=== PATIENT | female | born 1970 | race Native Hawaiian/Other Pacific Islander ===

== ENCOUNTER → 2016-04-04 | Outpatient (CLI) | payer OTHER ==
--- NOTE | 2016-04-04 13:10 | Diagnostic Imaging Report ---
Transabdominal and transvaginal pelvic ultrasound. INDICATION: Adnexal fullness. Pelvic pain. FINDINGS: The uterus is 9.4 x 4.8 x 4.6 cm. The endometrial stripe is 0.9 cm in thickness. The myometrium is heterogeneous with no discrete mass seen however. The ovaries are obscured by bowel gas. IMPRESSION: The ovaries are obscured. Heterogeneous myometrium with no discrete mass. Dictated by: Dictated on workstation # [id number]
--- NOTE | 2016-04-05 16:00 | Diagnostic Imaging Report ---
EXAMINATION: Bilateral digital screening mammogram with CAD. The current study was also evaluated with a Computer Aided Detection (CAD) system. INDICATION: Screening. No current complaints stated on the questionnaire. COMPARISON: 08/12/12. FINDINGS: The breasts are composed of heterogeneously dense parenchyma which may decrease mammographic sensitivity. There is an asymmetry along the upper aspect of the right MLO view, measuring 1 cm in size. The left breast demonstrates no significant change. IMPRESSION: Focal compression view and ultrasound evaluation for asymmetry in the upper aspect of the right breast is recommended. ACR BI-RADS Category 0: Incomplete. (Needs additional imaging evaluation). Result letter will be mailed to the patient. Note: At least 10% of breast cancer is not imaged by mammography. Dictated by: Dictated on workstation # [id number]
== END ==
LOC: RAD 09:59
PROVIDERS: ATTEND Nurse Practitioner Family
DX: R10.2 Pelvic and perineal pain (principal); N94.9 Unspecified condition associated with female genital organs and menstrual cycle; Z12.31 Encounter for screening mammogram for malignant neoplasm of breast
CPT/HCPCS: 76830; 76856

== ENCOUNTER 2020-03-26 04:21 | Inpatient (IN) | payer BC ==
[2020-03-26] VITALS (11 sets, daily range): BP systolic 132–156; BP diastolic 69–92
[~2020-03-26] VITALS: Ht 167.7 cm; Wt 93.1 kg
[2020-03-26] MEDS ORDERED: ASPIRIN 81 MG CHEW (CHILDREN'S ASA) PO ONE (04:45)
[2020-03-26 04:50] LABS: BASOPHILS # (AUTO) 0.1 10^3/uL (0.0-0.1); BASOPHILS % (AUTO) 1 % (0-10); EOSINOPHILS # (AUTO) 0.1 10^3/uL (0.0-0.3); EOSINOPHILS % (AUTO) 2 % (0-10); HEMATOCRIT 41 % (35-52); HEMOGLOBIN 13.3 g/dL (11.5-16.0); LYMPHOCYTES % (AUTO) 27 % (12-44); MEAN CORPUSCULAR HEMOGLOBIN 26 pg (25-34); MEAN CORPUSCULAR HGB CONC 33 g/dL (32-36); MEAN CORPUSCULAR VOLUME 80 fL (80-99); MEAN PLATELET VOLUME 9.6 fL (9.0-12.2); MONOCYTES # (AUTO) 0.4 10^3/uL (0.0-1.0); MONOCYTES % (AUTO) 5 % (0-12); NEUTROPHILS # (AUTO) 4.7 10^3/uL (1.8-7.8); NEUTROPHILS % (AUTO) 65 % (42-75); PLATELET COUNT 298 10^3/uL (130-400); WHITE BLOOD COUNT 7.2 10^3/uL (4.3-11.0)
[2020-03-26 05:04] LABS: ALBUMIN 3.9 GM/DL (3.2-4.5)
[2020-03-26 05:05] LABS: CHLORIDE 101 MMOL/L (98-107); POTASSIUM 3.6 MMOL/L (3.6-5.0); SODIUM 135 MMOL/L (135-145)
--- NOTE | 2020-03-26 05:06 | ED Chest Pain ---
General Chief Complaint: Chest Pain Stated Complaint: CP Source: patient Exam Limitations: no limitations (CHACHA SANCHEZ MD) History of Present Illness Date Seen by Provider: Mar 26, 2020 Time Seen by Provider: 04:31 Initial Comments Here with report of chest pain that started about 230 during an argument with her sister. Left-sided and moderate. Associated with shortness of breath and feeling weak. Chest pain went away after about an hour but she got short of breath again and decided to come to the emergency department. This is never happened before. Denies nausea, vomiting, diarrhea or previous history. Does have high blood pressure and diabetes. Timing/Duration: 1-3 hours, changing over time Severity/Quality: moderate, pressure Location: central Radiation: back Activities at Onset: emotional stress Prior CP/Workup: no prior chest pain, no prior cardiac workup ASA po PIECE MEAT TRIMMER: No NTG SL PIECE MEAT TRIMMER: No Associated Symptoms: No abdominal pain; back pain; No fever/chills, No nausea/vomiting; shortness of breath (CHACHA SANCHEZ MD) Allergies and Home Medications Allergies Coded Allergies: No Known Drug Allergies (Unverified , 03/26/20) Patient Home Medication List Home Medication List Reviewed: Yes (CHACHA SANCHEZ MD) Review of Systems Review of Systems Constitutional: see HPI; No chills, No diaphoresis, No fever EENTM: No Symptoms Reported Respiratory: See HPI; Denies Cough, Denies Wheezing Cardiovascular: Chest Pain; Denies Edema Gastrointestinal: Denies Diarrhea, Denies Nausea, Denies Vomiting Genitourinary: No Symptoms Reported Musculoskeletal: see HPI Skin: no symptoms reported Psychiatric/Neurological: See HPI, Anxiety; Denies Headache (CHACHA SANCHEZ MD) All Other Systems Reviewed Negative Unless Noted: Yes (CHACHA SANCHEZ MD) Past Ztfiflh-Dllfmq-Djsgfr Hx Past Med/Social Hx: Reviewed Nursing Past Med/Soc Hx (CHACHA SANCHEZ MD) Patient Social History Alcohol Use: Denies Use Recreational Drug Use: No Recent Foreign Travel: No Contact w/Someone Who Travel: No Recent Hopitalizations: No Physical Abuse: No Sexual Abuse: No Mistreated: No Fear: No (CHACHA SANCHEZ MD) Seasonal Allergies Seasonal Allergies: Yes (CHACHA SANCHEZ MD) Past Medical History Surgeries: No Respiratory: No Cardiac: Yes Hypertension Neurological: No Genitourinary: No Gastrointestinal: No Musculoskeletal: No Endocrine: Yes Diabetes, Non-Insulin dep HEENT: No Cancer: No Psychosocial: No Integumentary: No Blood Disorders: No (CHACHA SANCHEZ MD) Family Medical History Reviewed Nursing Family Hx (CHACHA SANCHEZ MD) No Pertinent Family Hx (CHACHA SANCHEZ MD) Physical Exam Vital Signs Vital Signs - First Documented 03/26/20 04:30 Temp 36.4 Pulse 101 Resp 18 B/P (MAP) 173/93 (119) Pulse Ox 99 O2 Delivery Room Air (MARU MCMAHON MD) Vital Signs Capillary Refill : (CHACHA SANCHEZ MD) Height, Weight, BMI Height: '" Weight: lbs. oz. kg; BMI Method: General Appearance: No Apparent Distress, WD/WN HEENT: PERRL/EOMI, Pharynx Normal Neck: Non Tender, Supple Respiratory: Lungs Clear, Normal Breath Sounds Cardiovascular: No Murmur, Tachycardia Gastrointestinal: Non Tender, Soft Extremity: Normal Range of Motion, Non Tender Neurologic/Psychiatric: Alert, Oriented x3 Skin: Normal Color, Warm/Dry (CHACHA SANCHEZ MD) Progress/Results/Core Measures Results/Orders Lab Results Laboratory Tests Test 03/26/20 04:40 03/26/20 06:01 03/26/20 07:00 Range/Units White Blood Count 7.2 4.3-11.0 10^3/uL Red Blood Count 5.09 3.80-5.11 10^6/uL Hemoglobin 13.3 11.5-16.0 g/dL Hematocrit 41 35-52 % Mean Corpuscular Volume 80 80-99 fL Mean Corpuscular Hemoglobin 26 25-34 pg Mean Corpuscular Hemoglobin Concent 33 32-36 g/dL Red Cell Distribution Width 11.9 10.0-14.5 % Platelet Count 298 130-400 10^3/uL Mean Platelet Volume 9.6 9.0-12.2 fL Immature Granulocyte % (Auto) 1 % Neutrophils (%) (Auto) 65 42-75 % Lymphocytes (%) (Auto) 27 12-44 % Monocytes (%) (Auto) 5 0-12 % Eosinophils (%) (Auto) 2 0-10 % Basophils (%) (Auto) 1 0-10 % Neutrophils # (Auto) 4.7 1.8-7.8 10^3/uL Lymphocytes # (Auto) 2.0 1.0-4.0 10^3/uL Monocytes # (Auto) 0.4 0.0-1.0 10^3/uL Eosinophils # (Auto) 0.1 0.0-0.3 10^3/uL Basophils # (Auto) 0.1 0.0-0.1 10^3/uL Immature Granulocyte # (Auto) 0.0 0.0-0.1 10^3/uL Prothrombin Time 12.4 12.2-14.7 SEC INR Comment 0.9 0.8-1.4 Activated Partial Thromboplast Time 28 24-35 SEC D-Dimer 0.35 0.00-0.49 UG/ML Sodium Level 135 135-145 MMOL/L Potassium Level 3.6 3.6-5.0 MMOL/L Chloride Level 101 98-107 MMOL/L Carbon Dioxide Level 25 21-32 MMOL/L Anion Gap 9 5-14 MMOL/L Blood Urea Nitrogen 14 7-18 MG/DL Creatinine 0.91 0.60-1.30 MG/DL Estimat Glomerular Filtration Rate > 60 BUN/Creatinine Ratio 15 Glucose Level 425 *H 70-105 MG/DL Calcium Level 9.0 8.5-10.1 MG/DL Corrected Calcium 9.1 8.5-10.1 MG/DL Magnesium Level 1.7 1.6-2.4 MG/DL Total Bilirubin 0.2 0.1-1.0 MG/DL Aspartate Amino Transf (AST/SGOT) 22 5-34 U/L Alanine Aminotransferase (ALT/SGPT) 40 0-55 U/L Alkaline Phosphatase 151 H 40-136 U/L Myoglobin 60.3 10.0-92.0 NG/ML Troponin I < 0.028 0.077 H <0.028 NG/ML Total Protein 7.6 6.4-8.2 GM/DL Albumin 3.9 3.2-4.5 GM/DL Glucometer 276 H 70-110 MG/DL (MARU MCMAHON MD) My Orders Orders - MARU MCMAHON MD Troponin I (03/26/20 07:01) Metoprolol Succinate (Xl) Tab (Toprol Xl (03/26/20 08:00) Clopidogrel Tablet (Plavix Tablet) (03/26/20 08:00) (MARU MCMAHON MD) Medications Given in ED Current Medications Medications Dose Ordered Sig/[place] Route Start Time Stop Time Status Last Admin Dose Admin Aspirin 324 mg ONCE ONCE PO 03/26/20 04:45 03/26/20 04:47 DC 03/26/20 05:07 324 MG Clopidogrel Bisulfate 300 mg ONCE ONCE PO 03/26/20 08:00 03/26/20 08:01 DC 03/26/20 08:13 300 MG Lactated Ringer's 1,000 ml @ 0 mls/hr Q0M ONCE IV 03/26/20 05:30 03/26/20 05:31 DC 03/26/20 05:29 1,000 MLS/HR Metoprolol Succinate 100 mg ONCE ONCE PO 03/26/20 08:00 03/26/20 08:01 DC 03/26/20 08:13 100 MG (MARU MCMAHON MD) Vital Signs/I&O 03/26/20 03/26/20 04:30 04:30 Temp 36.4 Pulse 101 Resp 18 B/P (MAP) 173/93 (119) Pulse Ox 99 O2 Delivery Room Air Room Air (MARU MCMAHON MD) Progress Progress Note : Progress Note Seen and evaluated. IV, labs, EKG, chest x-ray and ASA 324 mg p.o. Monitor patient. Pain-free so no nitro at this point. 0525: Blood sugar noted to be in the 400s. Insulin 10 units IV. LR 1 L bolus. Monitor patient. (CHACHA SANCHEZ MD) Progress Note : Time: 07:37 Progress Note Care assumed at shift change from Dr. SANCHEZ. Ms. Monroe is pain-free at this time. Relates that she had this episode of chest pain that felt like "a hard pinch" in her chest that did not radiate. She had associated shortness of breath and felt "clammy". Patient has a history of hypertension and diabetes on Metformin. She is not a smoker. Patient had four baby aspirin on arrival. She has been pain-free since the episode. No recent illnesses such as fevers chills cough or congestion or other URI symptoms. Patient states she ran out of her Metformin yesterday and did not take her dose last night. Blood sugar is down in the 200 range after 10 units of regular insulin IV. EKG is reviewed and shows a normal sinus rhythm without ectopy, no ST segment elevations or depressions are noted. We will repeat an EKG this morning. Case will be discussed with Dr. Peng who is on for [facility] as well as Dr. Renteria (MARU MCMAHON MD) Initial ECG Impression Date: Mar 26, 2020 Initial ECG Impression Time: 04:31 Initial ECG Rate: 99 Initial ECG Rhythm: Normal Sinus Comment Sinus rhythm with borderline tachycardia. Normal axis. No evidence of ST elevation MO. No previous available for comparison. Interpreted by me. (CHACHA SANCHEZ MD) Diagnostic Imaging Diagonstic Imaging: Xray Plain Films/CT/US/NM/MRI: chest Comments No acute findings on single view chest x-ray. (CHACHA SANCHEZ MD) Plain Films/CT/US/NM/MRI: chest Comments [facility] [place] NAME: ROZINA MONROE [facility] REC#: [id number] PT STATUS: REG ER : 1970 PHYSICIAN: CHACHA SANCHEZ MD ADMIT DATE: 03/26/20/ER Signed Date of Exam:03/26/20 CHEST 1 VIEW, AP/PA ONLY INDICATION: Chest pain COMPARISON: None available. TECHNIQUE: Single radiograph of the chest dated 03/26/2020. FINDINGS: The cardiac silhouette is within normal limits in size. No significant pulmonary vascular congestion. The lungs are clear. No pleural effusion. No pneumothorax. No acute osseous abnormality. IMPRESSION: No acute cardiopulmonary abnormality. Dictated by: Dictated on workstation # [id number] Dict: 03/26/20 0646 Trans: 03/26/20 0759 CVB [id number] Interpreted by: GALINA LEIVA MD Electronically signed by: GALINA LEIVA MD 03/26/20 0759 (MARU MCMAHON MD) Departure Communication (Admissions) Time/Spoke to Admitting Phy: 09:[address] Peng who accepts patient for admission Time/Spoke to Consulting Phy: 07:[address] Renteria would like Plavix 300 mg p.o. as well as 100 mg Toprol-XL. Keep the patient n.p.o. (MARU MCMAHON MD) Impression Primary Impression: Chest pain Qualified Codes: R07.9 - Chest pain, unspecified Additional Impression: NSTEMI (non-ST elevated myocardial infarction) Disposition: ADMITTED INPATIENT Condition: Stable Admissions Decision to Admit Reason: Admit from ER (General) Decision to Admit/Date: Mar 26, 2020 Time/Decision to Admit Time: 09:00 (MARU MCMAHON MD) Departure-Patient Inst. Referrals: [facility] [place] (PCP) Primary Care Physician VICENTE HITCHCOCK (Family) Primary Care Physician CHACHA SANCHEZ MD Mar 26, 2020 05:06 MARU MCMAHON MD Mar 26, 2020 07:39
[2020-03-26 05:07] LABS: TOTAL PROTEIN 7.6 GM/DL (6.4-8.2)
[2020-03-26 05:08] LABS: CARBON DIOXIDE 25 MMOL/L (21-32)
[2020-03-26 05:09] LABS: BILIRUBIN,TOTAL 0.2 MG/DL (0.1-1.0)
[2020-03-26 05:10] LABS: ALKALINE PHOSPHATASE 151 U/L (40-136); FIBRIN DEGRADATION PRODUCTS 0.35 UG/ML (0.00-0.49); INR 0.9 (0.8-1.4); PROTHROMBIN TIME PATIENT 12.4 SEC (12.2-14.7)
[2020-03-26 05:11] LABS: CREATININE SERUM 0.91 MG/DL (0.60-1.30)
[2020-03-26 05:12] LABS: BUN/CREATININE RATIO 15
[2020-03-26 05:13] LABS: ALANINE AMINOTRANSFERASE 40 U/L (0-55); MAGNESIUM 1.7 MG/DL (1.6-2.4)
[2020-03-26 05:15] LABS: GFR ESTIMATED > 60
[2020-03-26 05:16] LABS: GLUCOSE 425 MG/DL (70-105)
[2020-03-26] MEDS ORDERED: inSUlin (REGULAR) HUMAN 1 UNIT/0.01 ML (CHARGE PER UNIT) IV STA (05:19)
[2020-03-26] MEDS ORDERED: LACTATED RINGERS 1,000 ML IV ONE (05:30)
--- NOTE | 2020-03-26 07:00 | NUR ---
REPORT FROM PEG BUSBY
--- NOTE | 2020-03-26 07:15 | Diagnostic Imaging Report ---
INDICATION: Chest pain COMPARISON: None available. TECHNIQUE: Single radiograph of the chest dated 03/26/2020. FINDINGS: The cardiac silhouette is within normal limits in size. No significant pulmonary vascular congestion. The lungs are clear. No pleural effusion. No pneumothorax. No acute osseous abnormality. IMPRESSION: No acute cardiopulmonary abnormality. Dictated by: Dictated on workstation # [id number]
--- NOTE | 2020-03-26 07:45 | NUR ---
PT TO BE ADMITTED, NO ROOMS AVAILABLE IN HOSP AT THIS X. PT TO STAY IN ED UNTIL ROOM BECOMES AVAILABLE . PT NOTIFIED OF THIS. NO REQUEST, CALL LIGHT IN PLACE. PT CONT ON MONITOR
[2020-03-26] MEDS ORDERED: CLOPIDOGREL 300 MG (PLAVIX) TABLET PO ONE ×2 (08:00→14:07)
[2020-03-26] MEDS ORDERED: meTOprolol SUCCINATE 100 MG (TOPROL XL) TAB PO ONE (08:00)
--- NOTE | 2020-03-26 09:00 | NUR ---
PT CONT TO REST IN ROOM NO REQUEST OR CO @THIS X.
--- NOTE | 2020-03-26 12:00 | NUR ---
DR HSAIKH HERE TO SEE PT.
--- NOTE | 2020-03-26 12:04 | NUR ---
PT SIGNED CONSENT FORM TO HEART CATH. 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
--- NOTE | 2020-03-26 12:12 | Consultation-Cardiology ---
HPI-Cardiology Cardiology Consultation: Date of Consultation 03/26/20 Time Seen by a Provider: 11:50 Date of Admission Attending Physician Admitting Physician [place] Consulting Physician BELA SHAIKH MD, MA, FACP, FACC, [facility] [place], CCDS Physician requesting consult: Dr Peng HPI: Chief Complaint: CC: Chest discomfort HPI 49 yo woman who presented to the ER with and episode of chest discomfort this am, mid sternal, "pulling" sensation, lasting an hour or so, relieved with NTG in ER, mod in intensity, w/o radiation, associated with some nausea, never experienced before. Denies shortness of breath or palp or syncope or swelling. Review of Systems-Cardiology Review of Systems Constitutional: No malaise, No weight loss, No weight gain Eyes: No vision change Ears/Nose/Throat: No ear discharge, No nasal drainage, No recent hearing loss Respiratory: As described under HPI Cardiovascular: As described under HPI Gastrointestinal: As described under HPI; No diarrhea; nausea; No vomiting Genitourinary: No dysuria, No hematuria, No urine frequency changes Musculoskeletal: No back pain, No joint pain Skin: No rash, No ulcerations Psychiatric/Neurological: No seizure, No focal weakness, No syncope Hematologic: No bleeding abnormalities All Other Systems Reviewed Negative Unless Noted: Yes IAO-Wcxjtm-Kqxgzu Hx Patient Social History Alcohol Use: Denies Use Recreational Drug Use: No Recent Foreign Travel: No Recent Infectious Disease Expo: No Hospitalization with Isolation: Denies Past Medical History PMH As described under Assessment. Family Medical History Family Medical History: Does not report fam h/o early CAD or SCD Allergies and Home Medications Allergies Coded Allergies: No Known Drug Allergies (Unverified , 03/26/20) Patient Home Medication List Home Medication List Reviewed: Yes Physical Exam-Cardiology Physical Exam Vital Signs/I&O 03/26/20 03/26/20 04:30 04:30 Temp 36.4 Pulse 101 Resp 18 B/P (MAP) 173/93 (119) Pulse Ox 99 O2 Delivery Room Air Room Air Capillary Refill : Less Than 3 Seconds Constitutional: AAO x 3, well-developed, well-nourished HEENT: EOMI, hearing is well preserved; No xanthelasmas are seen Neck: carotid pulses are 2 + bilaterally, with good upstrokes Respiratory: No accessory muscle use; other (good bilateral air entry) Cardiovascular: regular rate-rhythm, S1 and S2, systolic murmur (faint ELLIS at card base) Gastrointestinal: No tender; soft; No guarding, No rebound; audible bowel sounds Extremities: No clubbing, No cyanosis, No significant edema Neurologic/Psychiatric: oriented x 3, other (moves all limbs equally) Skin: No rash, No ulcerations Data Review Labs Laboratory Tests 03/26/20 04:40: White Blood Count 7.2, Red Blood Count 5.09, Hemoglobin 13.3, Hematocrit 41, Mean Corpuscular Volume 80, Mean Corpuscular Hemoglobin 26, Mean Corpuscular Hemoglobin Concent 33, Red Cell Distribution Width 11.9, Platelet Count 298, Mean Platelet Volume 9.6, Immature Granulocyte % (Auto) 1, Neutrophils (%) (Auto) 65, Lymphocytes (%) (Auto) 27, Monocytes (%) (Auto) 5, Eosinophils (%) (Auto) 2, Basophils (%) (Auto) 1, Neutrophils # (Auto) 4.7, Lymphocytes # (Auto) 2.0, Monocytes # (Auto) 0.4, Eosinophils # (Auto) 0.1, Basophils # (Auto) 0.1, Immature Granulocyte # (Auto) 0.0, Prothrombin Time 12.4, INR Comment 0.9, Activated Partial Thromboplast Time 28, D-Dimer 0.35, Sodium Level 135, Potassium Level 3.6, Chloride Level 101, Carbon Dioxide Level 25, Anion Gap 9, Blood Urea Nitrogen 14, Creatinine 0.91, Estimat Glomerular Filtration Rate > 60, BUN/Creatinine Ratio 15, Glucose Level 425*H, Calcium Level 9.0, Corrected Calcium 9.1, Magnesium Level 1.7, Total Bilirubin 0.2, Aspartate Amino Transf (AST/SGOT) 22, Alanine Aminotransferase (ALT/SGPT) 40, Alkaline Phosphatase 151H , Myoglobin 60.3, Troponin I < 0.028, Total Protein 7.6, Albumin 3.9 03/26/20 06:01: Glucometer 276H 03/26/20 07:00: Troponin I 0.077H Laboratory Tests 03/26/20 04:40 A/P-Cardiology Assessment/Admission Diagnosis Ac NSTEMI DM II, uncontrolled Hypertension H/o hyperlipidemia Discussion and Recomendations * Treatment options for NSTEMI reviewed. She wishes to proceed with cath and, if needed, intervention. We reviewed and discussed the rationale, procedure, risks, benefits, potential complications, and alternatives of card cath and possible ad hoc cor intervention. She understands and provides informed consent * Treat with bb, ASA, clopidogrel * Further recs to be based on cath results * Management of DM II and other medical issues is with Dr Peng * Monitor labs Clinical Quality Measures AMI/AHF: ASA po Prior to arrival: BELA Herron MD FACP [facility] CCDS Mar 26, 2020 12:12
[2020-03-26] MEDS ORDERED: HEParin 1000 UNIT/ML (10ML VIAL) FOR BOLUS ONE (12:30)
[2020-03-26] MEDS ORDERED: MIDAZOLAM 5 MG/5 ML (VERSED) VIAL ONE (12:30)
[2020-03-26] MEDS ORDERED: fentaNYL INJECTION 100 MCG/2 ML AMP ONE (12:30)
[2020-03-26] MEDS ORDERED: LIDOCAINE 1% INJ 20 ML 20 ML VIAL ONE (12:30)
[2020-03-26] MEDS ORDERED: HEParin (CATH LAB) 2,000 ML IV ONE (12:31)
[2020-03-26] MEDS ORDERED: NS IV 1000 ML 1,000 ML ONE (12:31)
[2020-03-26] MEDS ORDERED: EPTIFIBATIDE BOLUS 20 ML IV ONE (13:44)
[2020-03-26] MEDS ORDERED: NITRO DRIP 25000 MCG/D5W 250 ML IV ONE (13:53)
[2020-03-26] MEDS ORDERED: PATIENT MAY USE OWN MEDS, ALL PO SCH (14:30)
[2020-03-26] MEDS ORDERED: NITROGLYCERIN 0.4 MG SL TABS BTL 25'S SL PRN (14:30)
[2020-03-26] MEDS: NS IV 1000 ML 1,000 ML IV SCH (16:10)
--- NOTE | 2020-03-26 18:32 | History & Physical-Hospitalist ---
History of Present Illness HPI/Chief Complaint CC: Chest pain HPI: This is a 49yoWF with risk factors for CAD who presents to the ER with CP. Cath will be performed by Dr Renteria. Patient denies any issues at this current time. 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 Patients Allergies have been reviewed. Allergies Allergies Coded Allergies No Known Drug Allergies (Unverified03/26/20) Past Xlokvdl-Ouuaia-Kzxmvs Hx Past Med/Social Hx: Reviewed Nursing Past Med/Soc Hx, Reviewed and Corrections made Patient Social History Marrital Status: single Employed/Student: unemployed Alcohol Use: Denies Use Recreational Drug Use: No Smoking Status: Current Everyday Smoker Recent Foreign Travel: No Contact w/other who traveled: No Recent Hopitalizations: No Recent Infectious Disease Expo: No Seasonal Allergies Seasonal Allergies: Yes Past Medical History Cardiac: Hypertension : No Endocrine: Diabetes, Non-Insulin dep History of Blood Disorders: No Family History Reviewed Nursing Family Hx No Pertinent Family Hx Review of Systems Constitutional: see HPI Cardiovascular: chest pain Physical Exam Physical Exam Vital Signs Vital Signs - First Documented 03/26/20 04:30 Temp 36.4 Pulse 101 Resp 18 B/P (MAP) 173/93 (119) Pulse Ox 99 O2 Delivery Room Air Capillary Refill : Less Than 3 Seconds Height, Weight, BMI Height: '" Weight: lbs. oz. kg; 33.53 BMI Method: General Appearance: No Apparent Distress, Chronically ill Eyes: Right Eye Normal Inspection, Right Eye PERRL HEENT: PERRL/EOMI, Normal ENT Inspection, Pharynx Normal, Moist Mucous Membranes Neck: Full Range of Motion, Normal Inspection, Non Tender Respiratory: Chest Non Tender, Lungs Clear, Normal Breath Sounds, No Accessory Muscle Use, No Respiratory Distress Cardiovascular: Regular Rate, Rhythm, No Edema, No Gallop, No JVD, No Murmur, Normal Peripheral Pulses Gastrointestinal: Normal Bowel Sounds, No Organomegaly, No Pulsatile Mass, Non Tender, Soft Back: Normal Inspection, No CVA Tenderness, No Vertebral Tenderness Extremity: Normal Capillary Refill, Normal Inspection, Normal Range of Motion, Non Tender, No Calf Tenderness, No Pedal Edema Neurologic/Psychiatric: Alert, Oriented x3, No Motor/Sensory Deficits, Normal Mood/Affect Skin: Normal Color, Warm/Dry Lymphatic: No Adenopathy Results Results/Procedures Labs Laboratory Tests 03/26/20 04:40 03/27/20 03:02 Patient resulted labs reviewed. Assessment/Plan Admission Diagnosis Assessment: Unstable angina? CAD Plan: Monitor pain Monitor BP Admission Status: Observation Clinical Quality Measures AMI/AHF: ASA po Prior to arrival: No DVT/VTE Risk/Contraindication: Risk Factor Score Per Nursin RFS Level Per Nursing on Admit: 2=Moderate TAPAN FNOSECA DO Mar 26, 2020 18:32
[2020-03-26] MEDS ORDERED: ONDANSETRON 4 MG/2 ML (SDV) Z0FRAN IVP PRN (18:45)
[2020-03-26] MEDS ORDERED: DOCUSATE SODIUM 100 MG (COLACE) CAP PO PRN (18:45)
[2020-03-26] MEDS ORDERED: MELATONIN 3 MG TABLET PO PRN (18:45)
[2020-03-26] MEDS ORDERED: CALCIUM CARBONATE 500 MG (TUMS) TAB.CHEW PO PRN (18:45)
[2020-03-26] MEDS ORDERED: ACETAMINOPHEN 500 MG TAB (TYLENOL) PO PRN (18:45)
[2020-03-26] MEDS ORDERED: diphenhydrAMINE 25 MG TAB (BENADRYL) PO PRN (18:45)
[2020-03-26] MEDS ORDERED: ALPRAZolam 0.25 MG (XANAX) TAB PO PRN (18:45)
[2020-03-26] MEDS ORDERED: LOPERAMIDE 2 MG (IMODIUM) TABLET PO PRN (18:45)
[2020-03-26] MEDS ORDERED: inSUlin (REGULAR) HUMAN 1 UNIT/0.01 ML (CHARGE PER UNIT) SC PRN (18:45)
[2020-03-26] MEDS ORDERED: SENNA W/DOCUSATE (SENOKOT S) TABLET ONE (19:57)
[2020-03-26] MEDS: SENNA W/DOCUSATE (SENOKOT S) TABLET PO SCH (20:02)
[2020-03-26] MEDS ORDERED: inSUlin ASPART (NovoLOG) 1 UNIT/0.01 ML (CHARGE PER UNIT) ONE (20:10)
[2020-03-26] MEDS: inSUlin ASPART (NovoLOG) 1 UNIT/0.01 ML (CHARGE PER UNIT) SC SCH (20:14)
--- NOTE | 2020-03-26 20:46 | CARDIAC CATHETERIZATION ---
DATE OF SERVICE: 03/26/2020 The patient is a 49-year-old lady with multiple coronary artery disease risk factors that include diabetes mellitus. She presented with unstable angina and acute non-ST elevation myocardial infarction. Cardiac catheterization was carried out after having obtained an informed consent for cardiac catheterization and possible ad hoc coronary intervention. DESCRIPTION OF PROCEDURE: She was brought to the cardiac catheterization laboratory. Right groin was prepared and draped in the usual sterile fashion lidocaine 1% for local anesthesia. Modified Seldinger technique was used to advance a [place] sheath in the right femoral artery, [place] JL4 catheter was used for left coronary angiography. A [place] JR4 catheter was not resulting in adequate engagement of the right coronary. With a [place] Gurpreet right catheter, we were able to obtain subselect engagement and adequate views of the right coronary artery. Subsequently, we proceeded with percutaneous intervention to the obtuse marginal system of the left circumflex that is described below. Prior to percutaneous intervention, we carried out left heart catheterization with a pigtail catheter. Left ventricular angiography was performed. The catheter was then removed. Percutaneous intervention to the fourth obtuse marginal branch of left circumflex: The fourth obtuse marginal branch of the left circumflex was exhibiting up to 80% stenosis, which involved all the proximal portion and the ostium of the artery. This was a 2.5 mm vessel. We exchanged the sheath over a wire for a 6[place] sheath. We used a 6[place] JL4 guide catheter. We advanced a BMW wire across the lesion and the tip was placed in the distal vessel. We used a Trek 2.5 x 30 mm balloon and balloon angioplasty was carried out. This reduced up to 80% stenosis to less than 30%. Because of good results and because the lesion involved the ostium, as well, we felt that balloon angioplasty was adequate and stenting was not needed at this time. Flow throughout the vessel is normal. Percutaneous intervention to the second obtuse marginal branch of the left circumflex: The second obtuse marginal branch of the left circumflex is a 2.5 mm vessel. It had approximately 90% proximal stenosis. We advanced a BMW wire across the lesion and carried out balloon angioplasty with a Trek 2.5 x 20 mm balloon. This balloon was removed and we stented the lesion with Xience Chelsey 2.5 x 12 mm stent, which reduced the stenosis from 90% to 0% residual. Flow throughout the vessel is normal. Angioplasty equipment was removed. Angiography of the right femoral artery was carried out through the sheath. Mynx was used to achieve hemostasis. She tolerated the procedure well. HEMODYNAMICS: Left ventricular end-diastolic pressure following coronary angiography was 17 mmHg. There was no significant pressure gradient on pullback across the aortic valve. Ascending aortic pressure was 110/64 with a mean of 85 mmHg. CORONARY ANGIOGRAPHY: Left main coronary artery does not exhibit significant disease. Left anterior descending artery has multiple up to 50% stenosis in its proximal and mid portions. This is generally a small caliber vessel. The left circumflex artery had multiple stenoses. The most prominent stenoses were in the second and the fourth obtuse marginal branches. The second obtuse marginal branch had a 90% stenosis that was successfully stented with Xience Chelsey 2.5 x 12 mm stent and it reduced the stenosis to 0% residual. The fourth obtuse marginal branch had a relatively long stenosis that was in the proximal portion and it involved the ostium. It was an 80% stenosis to which successful balloon angioplasty was carried out that reduced the stenosis to less than 30%. 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 It does not exhibit significant disease. LEFT VENTRICULAR ANGIOGRAPHY: Left ventricular angiography was carried out in the right anterior oblique projection. Global left ventricular systolic function was normal. No regional wall motion abnormality was seen. Left ventricular ejection fraction approximately 60%. CONCLUSIONS: 1. Coronary artery disease, primarily consisting of severe disease of the second obtuse marginal and the fourth obtuse marginal. Successful stenting was carried out to the second obtuse marginal and there is 0% residual stenosis in the proximal portion of the second obtuse marginal after deployment of Xience Chelsey 2.5 x 12 mm stent. Balloon angioplasty was carried out to the fourth obtuse marginal branch, reduced ostial and proximal stenoses to less than 30% residual. The left anterior descending artery was generally of a small caliber and has multiple up to 50% stenoses in its proximal and mid portion. 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 2. Elevated left ventricular end-diastolic pressure. 3. Normal global left ventricular systolic function with an ejection fraction of approximately 60%. DISCUSSION AND RECOMMENDATIONS: She remains hospitalized after presentation with acute non-ST elevation myocardial infarction and this intervention. Dual antiplatelet therapy has been added to the regimen. Beta-blockers have been added to the regimen. Statin therapy is recommended. Job ID: [id number] DocumentID: [id number] Dictated Date: 03/26/2020 14:27:22 Timber Setter Date: 03/26/2020 20:45:43 Dictated By: BELA SHAIKH MD, MA, FACP, FACC,
[2020-03-27 03:21] LABS: HEMOGLOBIN 12.2 g/dL (11.5-16.0); MEAN PLATELET VOLUME 9.9 fL (9.0-12.2); WHITE BLOOD COUNT 6.3 10^3/uL (4.3-11.0)
[2020-03-27 03:38] LABS: CHLORIDE 104 MMOL/L (98-107); POTASSIUM 3.5 MMOL/L (3.6-5.0); SODIUM 135 MMOL/L (135-145)
[2020-03-27 03:39] LABS: CALCIUM 8.2 MG/DL (8.5-10.1)
[2020-03-27 03:40] LABS: GLUCOSE 307 MG/DL (70-105); TRIGLYCERIDES 149 MG/DL (<150); VLDL CHOLESTEROL 30 MG/DL (5-40)
[2020-03-27 03:41] LABS: CARBON DIOXIDE 23 MMOL/L (21-32)
[2020-03-27 03:44] LABS: CREATININE SERUM 0.72 MG/DL (0.60-1.30); GFR ESTIMATED > 60
[2020-03-27 03:45] LABS: BUN/CREATININE RATIO 15; CHOLESTEROL 145 MG/DL (< 200)
[2020-03-27 03:46] LABS: HDL CHOLESTEROL 33 MG/DL (40-60)
[2020-03-27 04:31] VITALS: BP 148/82
[2020-03-27] MEDS: NS IV 1000 ML 1,000 ML IV SCH ×2 (06:31→11:21)
[2020-03-27] MEDS: inSUlin ASPART (NovoLOG) 1 UNIT/0.01 ML (CHARGE PER UNIT) SC SCH ×2 (06:53→11:30)
[2020-03-27] MEDS ORDERED: ENOXAPARIN 40 MG/0.4 ML (LOVENOX) SYR SC SCH (07:00)
[2020-03-27 08:00] VITALS: BP 145/85
[2020-03-27] MEDS ORDERED: ASPIRIN 81 MG CHEW (CHILDREN'S ASA) PO SCH (09:00)
[2020-03-27] MEDS ORDERED: CLOPIDOGREL 75 MG (PLAVIX) TABLET PO SCH (09:00)
[2020-03-27] MEDS ORDERED: meTOprolol SUCCINATE 100 MG (TOPROL XL) TAB PO SCH (09:00)
[2020-03-27] MEDS: SENNA W/DOCUSATE (SENOKOT S) TABLET PO SCH (09:31)
[2020-03-27 12:05] VITALS: BP 154/81
[2020-03-27] MEDS ORDERED: GLIM4TAB5 PO (12:14)
[2020-03-27] MEDS ORDERED: METF-399 PF ×2 (12:16→12:17)
[2020-03-27] MEDS ORDERED: ASPI-999 PO (13:57)
[2020-03-27] MEDS ORDERED: ATOR80TA76 PO (13:57)
[2020-03-27] MEDS ORDERED: CLOP75TA28 PO (13:57)
[2020-03-27] MEDS ORDERED: MTP100TCR PO (13:57)
--- NOTE | 2020-03-27 14:24 | Discharge Summary ---
Discharge Summary Hospital Course Hospital Course Date of Admission: Mar 26, 2020 at 09:00 Admission Diagnosis : Family Physician/Provider: Albert Jasso Date of Discharge: 03/27/20 Discharge Diagnosis: NSTEMI, coronary stent placed, HLP, DM OOC Hospital Course: Short course after admitted. Cath performed revealing the need to place stent. NO complications occurred. Labs and Pending Lab Test: Laboratory Tests 03/26/20 20:04: Glucometer 232H 03/27/20 03:02: White Blood Count 6.3, Red Blood Count 4.66, Hemoglobin 12.2, Hematocrit 37, Mean Corpuscular Volume 80, Mean Corpuscular Hemoglobin 26, Mean Corpuscular Hemoglobin Concent 33, Red Cell Distribution Width 12.0, Platelet Count 267, Mean Platelet Volume 9.9, Sodium Level 135, Potassium Level 3.5L, Chloride Level 104, Carbon Dioxide Level 23, Anion Gap 8, Blood Urea Nitrogen 11, Creatinine 0.72, Estimat Glomerular Filtration Rate > 60, BUN/Creatinine Ratio 15, Glucose Level 307H, Calcium Level 8.2L, Triglycerides Level 149, Cholesterol Level 145, LDL Cholesterol Direct 100, VLDL Cholesterol 30, HDL Cholesterol 33L 03/27/20 11:20: Glucometer 320H Home Meds Active Clopidogrel (Clopidogrel Bisulfate) 75 Mg Tablet 75 Mg PO DAILY 30 Days Atorvastatin Calcium 80 Mg Tablet 80 Mg PO HS 30 Days Metoprolol Succinate 100 Mg Tab.er.24h 100 Mg PO DAILY 30 Days Aspirin 81 Mg Tab.chew 81 Mg PO DAILY 30 Days Metformin HCl 1,000 Mg Tablet 1,000 Mg PF BID 7 Days Restart on Saturday Reported Glimepiride 4 Mg Tablet 4 Mg PO DAILY Assessment/Pt Instructions [facility] 1 week Discharge Planning: <30 minutes discharge planning Discharge Instructions Discharge Diet: ADA Diet, Cardiac Diet Activity as Tolerated: Yes Discharge Physical Examination Vital Signs Vital Signs Date Time Temp Pulse Resp B/P (MAP) Pulse Ox O2 Delivery O2 Flow Rate FiO2 03/27/20 12:18 72 03/27/20 12:05 35.1 20 154/81 (105) 96 Room Air General Appearance: No Apparent Distress, WD/WN, Chronically ill Allergies: Coded Allergies: No Known Drug Allergies (Unverified , 03/26/20) Discharge Summary Date of Admission Mar 26, 2020 at 09:00 Date of Discharge Discharge Date: Mar 27, 2020 Admission Diagnosis Assessment: Unstable angina? CAD Plan: Monitor pain Monitor BP Clinical Quality Measures AMI/AHF: ASA po Prior to arrival: No DVT/VTE Risk/Contraindication: Risk Factor Score Per Nursin RFS Level Per Nursing on Admit: 2=Moderate TAPAN FONSECA DO Mar 27, 2020 14:24
[2020-03-27] MEDS: KCL 10 MEQ TAB (MICRO K) PO ONE ×2 (14:30→14:52)
--- NOTE | 2020-03-27 16:28 | Progress Note - Cardiology ---
Cardiology SOAP Progress Note Subjective: No cp or palp or syncope or shortness of breath or groin or leg discomfort No focal weakness No n/v Feels well and wishes to go home Objective: I&O/Vital Signs 03/27/20 03/27/20 03/27/20 03/27/20 04:31 07:00 08:00 08:00 Temp 36.8 Pulse 71 70 62 Resp 20 20 B/P (MAP) 148/82 (104) 145/85 (105) Pulse Ox 95 97 96 O2 Delivery Room Air Room Air Room Air 03/27/20 03/27/20 03/27/20 03/27/20 08:00 12:00 12:05 12:18 Temp 35.1 Pulse 67 72 Resp 20 B/P (MAP) 154/81 (105) Pulse Ox 96 O2 Delivery Room Air Room Air Room Air 03/27/20 14:30 B/P (MAP) 03/27/20 00:00 Intake Total 300 ml Balance 300 ml Constitutional: AAO x 3, well-developed, well-nourished Respiratory: No accessory muscle use; other (good bilateral air entry) Cardiovascular: regular rate-rhythm, S1 and S2, systolic murmur (faint ELLIS at card base) Gastrointestional: No tender; soft; No guarding, No rebound; audible bowel sounds Extremities: No clubbing, No cyanosis, No significant edema Neurologic/Psychiatric: oriented x 3, other (moves all limbs equally) Skin: No rash, No ulcerations Results/Procedures: Labs Laboratory Tests 03/26/20 20:04: Glucometer 232H 03/27/20 03:02: White Blood Count 6.3, Red Blood Count 4.66, Hemoglobin 12.2, Hematocrit 37, Mean Corpuscular Volume 80, Mean Corpuscular Hemoglobin 26, Mean Corpuscular Hemoglobin Concent 33, Red Cell Distribution Width 12.0, Platelet Count 267, Mean Platelet Volume 9.9, Sodium Level 135, Potassium Level 3.5L, Chloride Level 104, Carbon Dioxide Level 23, Anion Gap 8, Blood Urea Nitrogen 11, Creatinine 0.72, Estimat Glomerular Filtration Rate > 60, BUN/Creatinine Ratio 15, Glucose Level 307H, Calcium Level 8.2L, Triglycerides Level 149, Cholesterol Level 145, LDL Cholesterol Direct 100, VLDL Cholesterol 30, HDL Cholesterol 33L 03/27/20 11:20: Glucometer 320H Laboratory Tests 03/26/20 04:40 03/27/20 03:02 A/P: Assessment: Ac NSTEMI on 03/26/20 CAD. Card cath of 03/26/20: severe disease of LCX OM2 and OM4. Successful stenting was carried out to the second obtuse marginal with Xience Chelsey 2.5 x 12 mm stent. Successful balloon angioplasty was carried out to the fourth obtuse marginal branch, reduced ostial and proximal stenoses to less than 30% residual. The left anterior descending artery was generally of a small caliber and has multiple up to 50% stenoses in its proximal and mid portion. 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 Elevated left ventricular end-diastolic pressure. Normal global left ventricular systolic function with an ejection fraction of approximately 60%. DM II, managed by Dr Peng Hypertension H/o hyperlipidemia Plan: * Treat with bb, ASA, clopidogrel and statin * Management of DM II and other medical issues is with Dr Peng * I had a long and detailed discussion with Ms Luis and explained her cardiac findings and the interventions undertaken. We also discussed risk factor mod and the rationale of her cardiac meds: ASA, clopidogrel, metoprolol succinate, and atorvastatin. We advised compliance with her cardiac meds and f/u with us on outpt basis within a week of being discharged Clinical Quality Measures AMI/AHF: ASA po Prior to arrival: BELA Herron MD [facility] CCDS Mar 27, 2020 16:28
== END 2020-03-27 14:30 | disposition home or self-care (01) | DRG 247 ==
LOC: EDUNIT# 04:21 → ER 04:27 → CATH 07:55 → CSD 09:00
PROVIDERS: ADMIT Internal Medicine; ATTEND Internal Medicine Cardiovascular Disease
PROC: 027034Z Dilation of Coronary Artery, One Artery with Drug-eluting Intraluminal Device, Percutaneous Approach (ICD-10-PCS; principal; 2020-03-26)
PROC: 02703ZZ Dilation of Coronary Artery, One Artery, Percutaneous Approach (ICD-10-PCS; 2020-03-26)
PROC: 4A023N7 Measurement of Cardiac Sampling and Pressure, Left Heart, Percutaneous Approach (ICD-10-PCS; 2020-03-26)
PROC: B2111ZZ Fluoroscopy of Multiple Coronary Arteries using Low Osmolar Contrast (ICD-10-PCS; 2020-03-26)
PROC: B2151ZZ Fluoroscopy of Left Heart using Low Osmolar Contrast (ICD-10-PCS; 2020-03-26)
DX: I21.4 Non-ST elevation (NSTEMI) myocardial infarction (principal); I25.110 Atherosclerotic heart disease of native coronary artery with unstable angina pectoris; I10 Essential (primary) hypertension; E78.5 Hyperlipidemia, unspecified; F41.9 Anxiety disorder, unspecified; F17.210 Nicotine dependence, cigarettes, uncomplicated; E11.65 Type 2 diabetes mellitus with hyperglycemia
CPT/HCPCS: 36415; 71045; 80048; 80053; 80061; 82962; 83735; 83874; 84484; 85025; 85027; 85379; 85610; 85730; 93005; 93041; 93458

== ENCOUNTER → 2020-04-22 | Outpatient (CLI) | payer BC ==
[~2020-04-22] MED LIST: ASPI-999 PO; ATOR80TA76 PO; CLOP75TA28 PO; GLIM4TAB5 PO; METF-399 PF; MTP100TCR PO
--- NOTE | 2020-04-22 13:41 | Diagnostic Imaging Report ---
INDICATION: Routine screening. COMPARISON is made with prior mammograms from 04/04/2016 and 08/12/2012. 2-D and 3-D bilateral screening mammography was performed with CAD. Scattered fibroglandular densities are identified bilaterally. The parenchymal pattern is stable. There are benign parenchymal and vascular calcifications. No mass or malignant appearing microcalcifications are seen. Axillae are unremarkable. IMPRESSION: BI-RADS Category 2 No mammographic features suspicious for malignancy are identified. ACR BI-RADS Category 2: Benign findings. Result letter will be mailed to the patient. Note: At least 10% of breast cancer is not imaged by mammography. Dictated by: Dictated on workstation # [id number]
== END ==
LOC: RAD 09:57
PROVIDERS: ATTEND Nurse Practitioner Family
DX: Z12.31 Encounter for screening mammogram for malignant neoplasm of breast (principal)
CPT/HCPCS: 77063; 77067

== ENCOUNTER → 2020-07-21 | Outpatient (CLI) | payer BC ==
[~2020-07-21] MED LIST changes: +RT-ALBUTEROL SULF 2.5 MG/3 ML PRE-MIX VIAL IH ONE
== END ==
LOC: RT 08:00
PROVIDERS: ATTEND Nurse Practitioner Family
DX: R05 Cough (principal)
CPT/HCPCS: 94060; 94726; 94729

== ENCOUNTER → 2022-01-02 | Outpatient (CLI) | payer BC ==
[~2022-01-02] MED LIST changes: -RT-ALBUTEROL SULF 2.5 MG/3 ML PRE-MIX VIAL IH ONE
== END ==
LOC: CARD 09:42
PROVIDERS: ATTEND Nurse Practitioner Family
DX: R00.2 Palpitations (principal)
CPT/HCPCS: 93225; 93226

== ENCOUNTER → 2022-11-28 | Outpatient (CLI) | payer BC ==
[~2022-11-28] MED LIST changes: +CATHETER FLUSH 10 ML SYR IVP PRN; +REGADENOSON 0.4 MG/5 ML SYR IV ONE
[2022-11-28 09:46] VITALS: BP 150/79
[2022-11-28 09:49] VITALS: BP 148/86
--- NOTE | 2022-11-28 11:34 | Cardiology Stress Test Report ---
Stress Test Report Date of Procedure/Referring: Date of Procedure: Nov 28, 2022 [facility] Admitting Physician Admitting Physician: Attending Physician: Araceli Lebron Indications: CAD Baseline Heart Rate: 64 Baseline Blood Pressure: Blood Pressure Systolic: 148 Blood Pressure Diastolic: 86 Baseline Vitals Vital Signs Date Time Temp Pulse Resp B/P (MAP) Pulse Ox O2 Delivery O2 Flow Rate FiO2 11/28/22 09:46 91 150/79 (102) 11/28/22 09:49 18 Baseline EKG: Baseline EKG: NSR Summary After explaining the procedure to the patient, she signed a consent and then brought to the stress nuclear laboratory. Patient received 0.4 mg Lexiscan for stress test, ECG, heart rate and blood pres sure were monitored continuously. Resting and stress dose of radio tracer were injected, imaging was acquired and reviewed in short axis, horizontal long axis and vertical long axis views. TID: 1.16 SSS: 3 SDS: 1 EF: 68 Patient tolerated Lexiscan well Breast attenuation with mild decrease uptake at the anterior apical segment with mild reversibility probably due to breast attenuation, overall there is no significant ischemia or infarction noted on SPECT images Normal left ventricular size, ejection fraction 68% Copy Copies To 1: BELA SHAIKH MD FACP FAC CCDS Copies To 2: [facility] [place] CHANDRA PANDYA MD Nov 28, 2022 11:34
== END ==
LOC: CARD 08:19
PROVIDERS: ATTEND Nurse Practitioner Family
DX: I25.10 Atherosclerotic heart disease of native coronary artery without angina pectoris (principal)
CPT/HCPCS: 78452; 93017; A9502